=== PATIENT | male | born 1990 | race Hispanic/Latino ===

== ENCOUNTER 2016-10-20 13:47 | Emergency (ER) | payer MEDICAID, OTHER ==
--- NOTE | 2016-10-20 14:29 | RAD ---
FINGERS RIGHT HAND TWO VIEWS: History: Injury to fourth finger right hand. FINDINGS: Mild swelling at the PIP joint. The lateral view shows evidence of a chip fracture off the base of t he middle phalanx at the PIP joint. No dislocation. IMPRESSION: Evidence of fracture involving the base of the middle phalanx of the fourth finger. POS: [facility]
== END 2016-10-20 14:25 | disposition home or self-care (01) ==
LOC: NAV ERS 13:47
DX: S62.634A Displaced fracture of distal phalanx of right ring finger, initial encounter for closed fracture (principal); W29.8XXA Contact with other powered hand tools and household machinery, initial encounter; Y99.0 Civilian activity done for income or pay

== ENCOUNTER 2017-11-18 10:49 | Emergency (ER) | payer MEDICAID, SELFPAY | END 2017-11-18 11:54 | disposition home or self-care (01) | LOC: NAV ERS 10:49 | DX: L03.319 Cellulitis of trunk, unspecified (principal) | CPT/HCPCS: 99283 ==